=== PATIENT | male | born 1980 | race African-American/Black ===

== ENCOUNTER 2017-10-30 10:59 | Emergency (ER) | payer OTHER ==
[~2017-10-30] VITALS: Ht 180.3 cm; Wt 82.0 kg
[~2017-10-30 10:59] MED LIST: CYCL-36 PO; DICL75 PO
[2017-10-30 11:03] VITALS: BP 129/88; PULSE 64; RESP 16; TEMP 97.3; O2SAT 100
--- NOTE | 2017-10-30 11:19 | PD ---
HPI Chief Complaint: Injury Time Seen by Provider: 11:08 Travel History International Travel<30 days: No Contact w/Intl Traveler<30days: No Traveled to known affect area: No History of Present Illness HPI 37-year-old -Turkish male presents emergency department with history of left anterior ankle pain which started while he was at work. 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 He states he took Tuesday off and has been taking over- the-counter medications and calcium with improved symptoms. He is essentially here for release back to work note. He currently has no symptoms. He has no known drug allergies. [facility] Past Medical History Diminished Hearing: No Social History Alcohol Use: Yes (socially) Tobacco Use: No Substance Use: No Allergies-Medications (Allergen,Severity, Reaction): Coded Allergies: No Known Allergies (Unverified , 04/28/15) Reported Meds & Prescriptions Reported Meds & Active Scripts Active Diclofenac Sodium 75 Mg Tab 75 Mg PO BID PRN Flexeril (Cyclobenzaprine HCl) 10 Mg Tab 10 Mg PO TID PRN Do not drive on the medication. Do not take with alcohol. Review of Systems Except as stated in HPI: all other systems reviewed are Neg General / Constitutional: No: Fever Eyes: No: Visual changes HENT: No: Headaches Cardiovascular: No: Chest Pain or Discomfort Respiratory: No: Shortness of Breath Gastrointestinal: No: Abdominal Pain Genitourinary: No: Dysuria Musculoskeletal: No: Pain Skin: No Rash Neurologic: No: Weakness Psychiatric: No: Depression Endocrine: No: Polydipsia Hematologic/Lymphatic: No: Easy Bruising Physical Exam Narrative GENERAL: Patient appears in no acute distress SKIN: Warm and dry. Normal color. Normal turgor HEAD: Atraumatic. Normocephalic. EYES: Pupils equal and round. No scleral icterus. No injection or drainage. ENT: No nasal bleeding or discharge. Mucous membranes pink and moist. NECK: Trachea midline. No JVD. CARDIOVASCULAR: Regular rate and rhythm. RESPIRATORY: No accessory muscle use. Clear to auscultation. Breath sounds equal bilaterally. MUSCULOSKELETAL: Extremities without clubbing, cyanosis, or edema. No obvious deformities. Left ankle appears normal with full range of motion strength and sensation. NEUROLOGICAL: Awake and alert. No obvious cranial nerve deficits. Motor grossly within normal limits. Five out of 5 muscle strength in the arms and legs. Normal speech. PSYCHIATRIC: Appropriate mood and affect; insight and judgment normal. Data Data Last Documented VS Vital Signs Date Time Temp Pulse Resp B/P (MAP) Pulse Ox O2 Delivery O2 Flow Rate FiO2 10/30/17 11:03 97.3 64 16 129/88 (102) 100 MDM Medical Decision Making Medical Screen Exam Complete: Yes Emergency Medical Condition: Yes Differential Diagnosis Left ankle strain. Left ankle sprain. Left ankle pain. Narrative Course Patient is currently asymptomatic. Radiographic imaging is not felt warranted. Patient to take ibuprofen and Tylenol as needed per Work note is given. Diagnosis Primary Impression: Left ankle sprain Qualified Codes: S93.402A - Sprain of unspecified ligament of left ankle, initial encounter Patient Instructions: General Instructions Departure Forms: Work Release Enter return to work date: Oct 31, 2017 Special Instructions: No restrictions Additional Instructions: Patient is currently asymptomatic. Radiographic imaging is not felt warranted. Patient to take ibuprofen and Tylenol as needed per Work note is given. Disposition: 01 DISCHARGE HOME Condition: Stable Jelani Morrell Oct 30, 2017 11:19
== END 2017-10-30 12:59 | disposition home or self-care (01) ==
LOC: NEPD 10:59
DX: S93.402A Sprain of unspecified ligament of left ankle, initial encounter (principal); X50.0XXA Overexertion from strenuous movement or load, initial encounter
CPT/HCPCS: 99282